=== PATIENT | female | born 1990 ===

== ENCOUNTER 2019-03-07 01:38 | Inpatient (IN) | payer MEDICAID ==
[2019-03-07 02:20] VITALS: BMI 24.3
--- NOTE | 2019-03-07 02:59 | PDOC.FPROB ---
FMR OB H&P: HPI - History of Present Illness Chief Complaint: Contractions History of Present Illness: 28 yo at 39.3 wk presents with CTx that started at 2000 last night and worsened around 0030 today. Patient reports movement. Denies LOF or bleeding. License Examiner utilized. Primary Care Physician: Dr. Oquendo. FMR OB H&P: Current - Care : 1 Para: 0 Gestational age: 39.3 Due date: 03/11/19 Dating Criteria: 13.6 wk US - OB Labs Blood type: O RH: positive Antibody Screen: negative HIV: negative RPR: negative HepBsAg: negative Rubella: immune Quad screen: negative Urine drug screen: negative Gonorrhea: negative Chlamydia: negative 1 hour gtt: 118 Additional labs: TSH 4.790 - First Trimester Ultrasound First trimester: normal per record but not report available. - Anatomy Survey Anatomy survey: normal per record but not report available. FMR OB H&P: History - Past Medical History PMH: hypothyroidism. - OB History OB History: none - STUDIO MODEL History STUDIO MODEL History: none - Surgical History Sx History: appendectomy - Social History Social History: no E/T/D. immigrated to [place] approximately 1 year ago. - Family History Family History: unremarkable. FMR OB H&P: Medications - Current Home Medications: Medication Instructions Recorded Confirmed Type Levothyroxine [Synthroid] 100 mcg SLOW IVP DAILY 03/07/19 03/07/19 History 21/Iron Fu/Folic Acid 1 tablet PO DAILY 03/07/19 03/07/19 History [ Complete Caplet] Allergies/Adverse Reactions: Allergies Allergy/AdvReac Type Severity Reaction Status Date / Time No Known Allergies Allergy Unverified 03/07/19 02:11 FMR OB H&P: ROS - Review of Systems General: denies: fever/chills, weight/appetite/sleep changes Eyes: denies: eye pain, vision changes ENT: denies: nasal congestion, rhinorrhea Cardiovascular: denies: chest pain, palpitation Respiratory: denies: cough, congestion Gastrointestinal: denies: abdominal pain, indigestion, constipation Genitourinary (Female): reports: contractions, vaginal pressure. denies: incontinence, vaginal discharge Musculoskeletal: denies: pain, stiffness Neurologic: denies: numbness, syncope Integumentary: denies: itching, rash Breast: denies: lumps, bumps Endocrine: denies: cold intolerance, heat intolerance Hematologic/Lymphatic: denies: prolonged or excessive bleeding, enlarged lymph nodes Psychological: denies: depression, anxiety FMR OB H&P: Vital Signs - Maternal Vital signs: Vital Signs - First Documented Temp Pulse Resp BP 98.0 F 102 H 18 108/77 03/07/19 02:08 03/07/19 02:08 03/07/19 02:08 03/07/19 02:08 - Heart Tones Baseline: 140 Variability: moderate Acceleration: present Deceleration: absent Category: category 1 [place] contractions every: 2-3 min FMR OB H&P: Physical Exam - Physical Exam General: NAD, awake, alert and oriented HEENT: EOMI, MMM, conjunctiva clear, no scleral icterus Neck: FROM, trachea midline Heart: RRR, normal S1/S2 General: CTAB Abdomen: soft, gravid, non-tender Musculoskeletal: FROM in all four extremities, no misalignment/asymmetry Neurological: no tremor, no focal deficit Skin: no rash, good tugor Lymphatic: no unusual bruising or bleeding, no purpura Psychiatric: intact recent and remote memory, good judgement and insight - Pelvic Exam Vulva: normal hair distribution, appropriate cooper stage Cervix: no masses SVE: /-2 Membranes: intact Presentation: vertex Estimated Weight: 6 lbs FMR OB H&P: Results - Labs Lab results: Laboratory Results - last 24 hr 03/07/19 01:48 Blood Type O POSITIVE Blood Bank Comment See comment: FMR OB H&P: A/P - Problem List (1) Current Visit: Yes Status: Acute Qualifiers: Weeks of gestation: 39 weeks Qualified Code(s): Z3A.39 - 39 weeks gestation of (2) Hypothyroid in , antepartum Current Visit: Yes Status: Acute Code(s): O99.280 - ENDO, NUTRITIONAL AND METAB DISEASES COMP PREG, UNSP TRI; E03.9 - HYPOTHYROIDISM, UNSPECIFIED (3) Uterine contractions during Current Visit: Yes Status: Acute Code(s): O62.2 - OTHER UTERINE INERTIA Disposition: - False labor vs Latent labor: IV LR 1L, Benadryl 25 mg IVP. Reassess in 2 hours. If no cervical change, d/c home with close follow up. If cervical change occurs, will admit for expectant management. - Hypothyroid: continue synthroid if admitted. Discussion: Date/Time: 03/07/19256 This H&P was discussed with Dr. Garcia who agree with the above documentation and plan.
[2019-03-07] MEDS ORDERED: diphenhydrAMINE 50 MG/ML VIAL IVP SCH (03:00)
[2019-03-07] MEDS: Lactated Ringer's 1,000 ML IV SCH ×3 (03:02→14:41)
[2019-03-07] MEDS ORDERED: Ibuprofen 800 MG TAB PO PRN (04:46)
[2019-03-07] MEDS ORDERED: Butorphanol Tartrate 1 MG/ML VIAL SLOW IVP PRN (04:46)
[2019-03-07] MEDS ORDERED: NS / Oxytocin 40 units/1000ml 1,000 ML IV PRN (04:46)
[2019-03-07] MEDS ORDERED: Lidocaine 1% (PF) 30 ML VIAL SC PRN (04:46)
[2019-03-07] MEDS ORDERED: Carboprost 250 MCG/ML AMP IM PRN (04:46)
[2019-03-07] MEDS ORDERED: Ondansetron PF 4 MG/2 ML Vial IVP PRN ×2 (04:46→10:13)
[2019-03-07] MEDS ORDERED: Diphenoxylate HCl/Atropine Tablet PO PRN (04:46)
[2019-03-07] MEDS ORDERED: Acetaminophen 500 MG TAB PO PRN (04:46)
[2019-03-07] MEDS ORDERED: Misoprostol 200 MCG TAB PR PRN (04:46)
[2019-03-07] MEDS ORDERED: Methylergonovine 0.2 MG/ML VIAL IM PRN (04:46)
[2019-03-07] MEDS ORDERED: HYDROcodone/Acetaminophen 5/325 mg Tablet PO PRN ×2 (04:46)
[2019-03-07] MEDS ORDERED: Promethazine HCl 25 MG/ML VIAL IM PRN ×2 (04:46→10:13)
[2019-03-07 05:03] LABS: Hemoglobin 14.8 g/dL (12.0-16.0); Mean Corpuscular HGB CONC 34.7 g/dL (32.0-36.0); Mean Corpuscular Hemoglobin 31.8 pg (27.0-31.0); Mean Corpuscular Volume 91.6 fL (78.0-98.0); Mean Platelet Volume 7.9 fL (7.4-10.4); Platelet Count 326 thou/uL (130-400); Red Blood Cell (RBC) Count 4.66 mill/uL (4.20-5.40); White Blood Cell (WBC) Count 10.7 thou/uL (4.8-10.8)
[2019-03-07 05:30] LABS: Syphilis Antibody Nonreactive (Nonreactive); Syphilis Antibody Index 0.02 S/CO (<1.00 Non-Reactive)
[2019-03-07 05:31] LABS: HBSAg Index 0.31 S/CO (0-0.99); Hep B Surf Ag Non-Reactive S/CO (NonReactive)
[2019-03-07] MEDS ORDERED: Fentanyl 4 mcg/Bup 0.1% Cadd 100 ML ONE ×2 (09:31→16:25)
[2019-03-07] MEDS ORDERED: Lidocaine 1.5%/Epinephrine 1:200,000 5 ML AMPUL IJ ONE (09:33)
[2019-03-07] MEDS: Fentanyl 4 mcg/Bupivacaine 0.1% Cassette 100 ML EPIDURAL SCH ×2 (10:09→16:30)
[2019-03-07] MEDS ORDERED: Eucerin (Mineral Oil/Petrolatum,White) 30 gm Jar TOP PRN (10:13)
[2019-03-07] MEDS ORDERED: ePHEDrine/0.9% NaCl/PF SYRINGE 50 mg/10 ml SLOW IVP PRN (10:13)
[2019-03-07] MEDS ORDERED: Acetaminophen 325 MG TAB PO PRN (10:13)
[2019-03-07] MEDS ORDERED: diphenhydrAMINE 50 MG/ML VIAL IVP PRN (10:13)
[2019-03-07] MEDS ORDERED: Lactated Ringer's 500 ML IV PRN (10:13)
[2019-03-07] MEDS ORDERED: Naloxone HCl 0.4 mg/ml Vial IVP PRN ×2 (10:13)
[2019-03-07] MEDS ORDERED: Communication Order-Pharmacy FS SCH (10:15)
[2019-03-07] MEDS ORDERED: NS w/ Oxytocin 10 units 500 ML ONE (11:33)
[2019-03-07] MEDS ORDERED: NS w/ Oxytocin 10 units 500 ML IVPB SCH (12:00)
[2019-03-07] MEDS ORDERED: Bupivacaine PF 0.5% 30 ML VIAL ONE (12:24)
[2019-03-07] MEDS ORDERED: Bupivacaine/Epinephrine 0.25% 30 ML VIAL ONE (12:24)
[2019-03-07] MEDS ORDERED: Bicitra 30 ML UDCUP ONE (21:35)
[2019-03-07] MEDS ORDERED: Azithromycin 500 MG in Sodium Chloride 0.9% 250 ML 250 ML IVPB SCH (22:00)
[2019-03-07] MEDS ORDERED: MORPHINE 5 MG/10 ML PF VIAL ONE (22:00)
[2019-03-07] MEDS ORDERED: Gentamicin Sulfate 270 MG in Sodium Chloride 0.9% 100 ML IVPB SCH (22:00)
[2019-03-07] MEDS ORDERED: Oxytocin 10 UNITS/ML VIAL ONE (22:01)
[2019-03-07] MEDS ORDERED: HYDROmorphone 2 MG/ML VIAL SLOW IVP PRN (22:05)
[2019-03-07] MEDS ORDERED: L&D-Morphine 4 MG/ML VIAL SLOW IVP PRN (22:05)
[2019-03-07] MEDS ORDERED: Ondansetron HCl/PF 4 MG/2 ML Vial IVP PRN (22:05)
[2019-03-07] MEDS ORDERED: Meperidine HCl/PF 25 MG/ML VIAL SLOW IVP PRN (22:05)
[2019-03-07] MEDS ORDERED: Ketorolac Tromethamine 30 MG/ML VIAL IVP SCH (22:15)
[2019-03-07] MEDS ORDERED: Methylergonovine 0.2 MG/ML VIAL ONE (22:32)
--- NOTE | 2019-03-07 23:04 | PDOC.EVN ---
Event Note - Event Note Event Note: OBGYN correctional corporal CS ASSIST NOTE Asked to assist with primary section for FTP and IAI, on ABX. I was present and scrubbed in for primary LTCS. Hysterotomy closed in 2 layers. No complications. [place] in use
[2019-03-08] MEDS ORDERED: Ketorolac Tromethamine 30 MG/ML VIAL ONE (00:30)
[2019-03-08] MEDS ORDERED: NS / Oxytocin 40 units/1000ml 1,000 ML IV SCH (00:38)
[2019-03-08] MEDS ORDERED: HYDROcodone/Acetaminophen 5/325 mg Tablet PO PRN ×2 (00:38)
[2019-03-08] MEDS ORDERED: Bisacodyl 10 MG SUPP PR PRN (00:38)
[2019-03-08] MEDS ORDERED: Lanolin Ointment 7 GM TUBE TOP PRN (00:38)
[2019-03-08] MEDS ORDERED: Ondansetron PF 4 MG/2 ML Vial IVP PRN ×2 (00:38→03:33)
[2019-03-08] MEDS ORDERED: Simethicone Chewable 80 MG TAB PO PRN (00:38)
[2019-03-08] MEDS ORDERED: Meperidine HCl/PF 25 MG/ML VIAL IM PRN (00:38)
[2019-03-08] MEDS ORDERED: diphenhydrAMINE 25 MG CAP PO PRN (00:38)
[2019-03-08] MEDS ORDERED: Ibuprofen 800 MG TAB PO SCH (00:38)
[2019-03-08] MEDS ORDERED: Ketorolac Tromethamine 30 MG/ML VIAL IVP SCH (00:45)
--- NOTE | 2019-03-08 03:26 | OP ---
DATE OF PROCEDURE: 03/07/2019 PREOPERATIVE DIAGNOSES: 1. Term . 2. Arrest of dilation. 3. Intrapartum fever, suspected chorioamnionitis. POSTOPERATIVE DIAGNOSES: 1. Term . 2. Arrest of dilation. 3. Intrapartum fever, suspected chorioamnionitis. PROCEDURE PERFORMED: Primary low cervical transverse . MEDICAL TECHNOLOGIST CLINICAL: Constantino Rodriguez MD. INDICATIONS: A 28-year-old female, G1, P0 with no change cervical change for 3 plus hours in the presence of adequate contractions and new onset intrapartum fever. DESCRIPTION OF EVENTS: After informed consent was obtained from the patient, she was taken to the operating room after her epidural anesthesia was administered. She was prepped and draped in the usual sterile fashion. A Pfannenstiel incision was created with a #10 scalpel blade. Skin bleeders were cauterized with the Bovie. The fascia was nicked in the midline and deep fascial layers were extended transversely with Franz scissors. The superior fascial segments were grasped with Kochers and elevated and the underlying rectus muscles were dissected free, first bluntly and then sharply, this was repeated with inferior fascial segment. The rectus muscles were divided in the midline with blunt digital dissection. The peritoneum was also entered with blunt digital dissection. Bladder blade was inserted. The uterus entered in the low-transverse fashion with a clean #10 scalpel blade. Clear amniotic fluid was encountered. The vertex was delivered onto the operative field followed by the remainder of the infant. The oropharynx and nares were bulb suctioned. Cord was clamped x2, and a vigorous was handed to the staff in attendance. The cord blood was obtained. The placenta was manually extracted. The uterus was exteriorized and the freed of clots and debris. After per forming bimanual massage, the uterus remained atonic and Methergine x1 IM was given intraoperatively. The uterus was repaired with a running locking suture of 0-PDS in a single full-thickness layer followed by a second imbricating layer, also with 0-Vicryl. A single [id number] suture was placed on the right corner for hemostasis, which was observed. Abdomen was copiously irrigated with saline. The uterus was returned to the abdomen and hemostasis was gain observed. Peritoneum was repaired with a running suture of 3-0 Vicryl. The fascia was repaired with a running suture of 0-PDS. Three interrupted sutures of 3-0 Vicryl was placed in the subdermal layer. We approximated the skin, which was closed with skin jojo. Sponge and instrument counts were correct x4. She tolerated this procedure well and suffered no acute complications and was taken to Recovery in stable condition. Job ID: [id number]
[2019-03-08] MEDS ORDERED: Promethazine HCl 25 MG SUPP PR PRN (03:33)
[2019-03-08] MEDS ORDERED: Hydrocerin (Eucerin) Cream 120 gm Jar TOP PRN (03:33)
[2019-03-08] MEDS ORDERED: Promethazine HCl 25 MG/ML VIAL IM PRN (03:33)
[2019-03-08] MEDS ORDERED: diphenhydrAMINE 50 MG/ML VIAL IVP PRN (03:33)
[2019-03-08] MEDS ORDERED: Naloxone HCl 0.4 mg/ml Vial IV PRN ×3 (03:33)
[2019-03-08] MEDS ORDERED: NO PO,IM,IV OR SC NARCOTICS FOR 12HR EXCEPT BY ANESTHESIA PO SCH (03:33)
[2019-03-08] MEDS ORDERED: Midazolam HCl 2 mg/2 ml Vial ONE (05:03)
[2019-03-08] MEDS: Lactated Ringer's 1,000 ML IV SCH (05:39)
[2019-03-08] MEDS: Ketorolac Tromethamine 30 MG/ML VIAL IVP PRN ×2 (05:40→12:31)
[2019-03-08] MEDS ORDERED: CEFAZOLIN 2 GM in Premix Bag 1 BAG IVPB SCH (06:00)
[2019-03-08 08:33] LABS: Hemoglobin 11.1 g/dL (12.0-16.0); Mean Corpuscular HGB CONC 34.8 g/dL (32.0-36.0); Mean Corpuscular Hemoglobin 32.2 pg (27.0-31.0); Mean Corpuscular Volume 92.4 fL (78.0-98.0); Mean Platelet Volume 7.8 fL (7.4-10.4); Platelet Count 236 thou/uL (130-400); RBC Distribution Width 15.1 % (11.5-14.5); Red Blood Cell (RBC) Count 3.45 mill/uL (4.20-5.40); White Blood Cell (WBC) Count 16.9 thou/uL (4.8-10.8)
[2019-03-08] MEDS: Ferrous Sulfate 325 MG TAB PO SCH ×2 (10:13→15:50)
[2019-03-08] MEDS: Docusate Calcium (SURFAK) 240 MG CAP PO SCH ×2 (12:30→22:36)
[2019-03-08] MEDS: Prenatal Vitamin 1 TAB PO SCH (12:30)
[2019-03-08] MEDS: Acetaminophen 500 MG TAB PO PRN ×2 (12:34→22:36)
[2019-03-08] MEDS: metroNIDAZOLE 500 MG in Premix Bag 1 BAG IVPB SCH ×2 (13:47→22:35)
[2019-03-08 14:47] LABS: Bilirubin Negative (Negative); Blood, Urine Large (Negative); Clarity CLOUDY (Clear); Glucose, Urine (Dipstick) Negative (Negative); Leukocyte Moderate (Negative); Nitrite Negative (Negative); Protein, Urine (Dipstick) 30 mg/dL (Neg-Trace); Specific Gravity, Urine 1.005 (1.002-1.036); Urobilinogen 0.2 mg/dL (0.2-1.0)
[2019-03-08 14:52] LABS: Bacteria/HPF None Seen HPF (None Seen); Hyaline Casts/LPF 4-6 HYALINE CAST LPF (0-3 Hyaline); Pathc Cast-AUWi Flag 0.95 (0-2.49)
[2019-03-08 14:54] LABS: Yeast-AUWi Flag 66.1 (0-25.0)
[2019-03-08 15:05] LABS: Yeast-All Forms None Seen HPF (None Seen)
[2019-03-08 15:07] LABS: Urine Culture Reflex No No
[2019-03-08] MEDS: CEFAZOLIN 2 GM in Premix Bag 1 BAG IVPB SCH ×2 (15:11→22:35)
[2019-03-09] MEDS: metroNIDAZOLE 500 MG in Premix Bag 1 BAG IVPB SCH ×3 (05:02→21:41)
[2019-03-09] MEDS: CEFAZOLIN 2 GM in Premix Bag 1 BAG IVPB SCH ×3 (05:03→21:42)
[2019-03-09] MEDS: Gentamicin Sulfate 270 MG in Sodium Chloride 0.9% 100 ML IVPB SCH (05:09)
[2019-03-09] MEDS: Acetaminophen 500 MG TAB PO PRN ×2 (05:31→13:34)
[2019-03-09] MEDS: Docusate Calcium (SURFAK) 240 MG CAP PO SCH ×2 (09:13→21:42)
[2019-03-09] MEDS: Prenatal Vitamin 1 TAB PO SCH (09:13)
[2019-03-09] MEDS: Ferrous Sulfate 325 MG TAB PO SCH ×2 (09:13→18:26)
[2019-03-10] MEDS: CEFAZOLIN 2 GM in Premix Bag 1 BAG IVPB SCH (04:29)
[2019-03-10] MEDS: metroNIDAZOLE 500 MG in Premix Bag 1 BAG IVPB SCH (04:30)
[2019-03-10] MEDS: Gentamicin Sulfate 270 MG in Sodium Chloride 0.9% 100 ML IVPB SCH (04:30)
[2019-03-10] MEDS ORDERED: Ibuprofen 800 MG TAB PO SCH (06:00)
[2019-03-10 08:44] VITALS: BP 98/66; TEMP 97.8
[2019-03-10] MEDS: Docusate Calcium (SURFAK) 240 MG CAP PO SCH (08:50)
[2019-03-10] MEDS: Prenatal Vitamin 1 TAB PO SCH (08:50)
[2019-03-10] MEDS: Ferrous Sulfate 325 MG TAB PO SCH (09:27)
== END 2019-03-10 10:45 | disposition home or self-care (01) | DRG 786 ==
LOC: L&D/OP 01:38 → L&D 05:08 → 3SW 03-08 02:12
PROVIDERS: ADMIT Family Medicine; ATTEND Family Medicine
PROC: 10D00Z1 Extraction of Products of Conception, Low, Open Approach (ICD-10-PCS; principal; 2019-03-07)
DX: O99.284 Endocrine, nutritional and metabolic diseases complicating childbirth (principal); O41.1230 Chorioamnionitis, third trimester, not applicable or unspecified; E03.9 Hypothyroidism, unspecified; O62.1 Secondary uterine inertia; Z3A.39 39 weeks gestation of pregnancy; Z37.0 Single live birth
CPT/HCPCS: 36415; 51702; 81001; 85027; 86780; 86850; 86900; 86901; 87040; 87340; 88307; 99285; J0456; J0595; J0690; J1200; J1580; J1885; J2001; J2210; J2250; J2270; J2590; J3490; J7050